=== PATIENT | male | born 1995 | race Caucasian/White ===

== ENCOUNTER 2016-11-13 17:26 | Emergency (ER) | payer OTHER ==
[~2016-11-13] VITALS: Ht 180.3 cm; Wt 65.9 kg
[~2016-11-13 17:26] MED LIST: CLON.5 PO; SERT100T12 PO; SULF1TAB42 PO
[2016-11-13 18:30] VITALS: BP 140/88
[2016-11-13] MEDS ORDERED: IBUPROFEN 800 MG TABLET PO ONE (18:30)
== END 2016-11-13 18:56 | disposition home or self-care (01) ==
LOC: EMS 17:27
DX: S61.401A Unspecified open wound of right hand, initial encounter (principal); S51.001A Unspecified open wound of right elbow, initial encounter; S60.221A Contusion of right hand, initial encounter; W01.0XXA Fall on same level from slipping, tripping and stumbling without subsequent striking against object, initial encounter; Y93.89 Activity, other specified; Y92.89 Other specified places as the place of occurrence of the external cause; Y99.8 Other external cause status
CPT/HCPCS: 99284

== ENCOUNTER 2017-07-02 11:13 | Emergency (ER) | payer OTHER ==
[~2017-07-02] VITALS: Ht 180.3 cm; Wt 59.1 kg
[2017-07-02 12:21] LABS: AMPHET/METH SCREEN,URINE NEGATIVE (NEGATIVE); BARBITURATE SCREEN, URINE NEGATIVE (NEGATIVE); BENZODIAZEPINES SCREEN,URINE NEGATIVE (NEGATIVE); CANNABINOID SCREEN,URINE POSITIVE (NEGATIVE); COCAINE SCREEN,URINE NEGATIVE (NEGATIVE); METHADONE SCREEN, URINE NEGATIVE (NEGATIVE); OPIATE SCREEN,URINE NEGATIVE (NEGATIVE)
[2017-07-02 12:22] LABS: PHENCYCLIDINE SCREEN,URINE NEGATIVE (NEGATIVE)
[2017-07-02 12:23] LABS: BASOPHILS % (AUTO) 0.8 % (0.0-2.0); HEMATOCRIT 44.9 % (41-53); HEMOGLOBIN 15.4 g/dL (13.5-17.5); LYMPHOCYTES # (AUTO) 1.2 K/uL (1.0-4.8); LYMPHOCYTES % (AUTO) 19.4 % (22.0-44.0); MEAN CORPUSCULAR HGB CONC 34.3 G/dL (31.0-37.0); MEAN CORPUSCULAR VOLUME 88 fL (80-100); MONOCYTES # (AUTO) 0.3 K/uL (0.1-1.0); NEUTROPHILS # (AUTO) 4.4 K/uL (1.8-7.7); NEUTROPHILS % (AUTO) 73.8 % (40.0-70.0); PLATELET COUNT (AUTO) 176 K/uL (150-450); RED BLOOD CELL COUNT(AUTO) 5.13 MIL/uL (4.50-5.90); RED CELL DISTRIBUTION WIDTH 14.8 % (11.5-14.5)
[2017-07-02 12:42] LABS: ANION GAP 7 mmol/L (8-16); CALCIUM, TOTAL 9.5 mg/dL (8.8-10.5); CARBON DIOXIDE 27 mmol/L (22-29); CHLORIDE 104 mmol/L (98-107); CREATININE 0.96 mg/dL (0.60-1.30); GLOMERULAR FILTR. RATE CALC > 60 mL/min (>60); GLUCOSE,RANDOM 123 mg/dL (70-110); POTASSIUM 4.4 mmol/L (3.5-5.1); SODIUM SERUM 138 mmol/L (136-145); UREA NITROGEN, BLOOD 12 mg/dL (7-18)
[2017-07-02 12:45] LABS: ALANINE AMINOTRANSFERASE 25 U/L (12-78); ALBUMIN 4.8 g/dL (3.4-5.0); ALKALINE PHOSPHATASE 78 U/L (46-116); ASPARTATE AMINOTRANSFERASE 18 U/L (15-37); BILIRUBIN,TOTAL 0.5 mg/dL (0.1-1.0); TOTAL PROTEIN, SERUM 8.7 g/dL (6.4-8.2)
[2017-07-02 12:58] LABS: APPEARANCE,URINE CLEAR (CLEAR); BILIRUBIN,URINE NEGATIVE (NEGATIVE); GLUCOSE, URINE (UA) NEGATIVE (NEGATIVE); KETONES,URINE NEGATIVE (NEGATIVE); LEUKOCYTE ESTERASE ,URINE NEGATIVE (NEGATIVE); NITRATE,URINE NEGATIVE (NEGATIVE); OCCULT BLOOD,URINE NEGATIVE (NEGATIVE); PH,URINE 6.5 (5.0-8.0); PROTEIN,URINE NEGATIVE (NEGATIVE); UROBILINOGEN,URINE 0.2 mg/dL (<=1.0)
[2017-07-02 15:57] VITALS: BP 151/75
== END 2017-07-02 16:16 | disposition home or self-care (01) ==
LOC: EMS 11:14
DX: F41.9 Anxiety disorder, unspecified (principal); R42 Dizziness and giddiness; R11.0 Nausea; F32.9 Major depressive disorder, single episode, unspecified; F12.90 Cannabis use, unspecified, uncomplicated
CPT/HCPCS: 93005; 99285

== ENCOUNTER 2018-11-18 06:58 | Emergency (ER) | payer SELFPAY ==
[~2018-11-18] VITALS: Ht 180.3 cm; Wt 68.2 kg
[2018-11-18] MEDS ORDERED: INDO-16 PO (07:34)
[2018-11-18] MEDS ORDERED: METH500T7 PO (07:34)
[2018-11-18] MEDS ORDERED: BETAMETHASONE PO (07:34)
[2018-11-18 13:04] VITALS: BP 106/62
== END 2018-11-18 13:27 | disposition home or self-care (01) ==
LOC: EMS 06:58
DX: S63.501A Unspecified sprain of right wrist, initial encounter (principal); F41.9 Anxiety disorder, unspecified; F32.9 Major depressive disorder, single episode, unspecified; X58.XXXA Exposure to other specified factors, initial encounter; Y93.H3 Activity, building and construction; Y92.89 Other specified places as the place of occurrence of the external cause; Y99.8 Other external cause status

== ENCOUNTER 2018-11-20 19:58 | Emergency (ER) | payer SELFPAY ==
[~2018-11-20] VITALS: Ht 180.3 cm; Wt 68.2 kg
[~2018-11-20 19:58] MED LIST changes: +BETAMETHASONE PO; -CLON.5 PO; +INDO-16 PO; +METH500T7 PO; -SERT100T12 PO; -SULF1TAB42 PO
[2018-11-20 20:38] VITALS: BP 124/74
== END 2018-11-20 21:00 | disposition home or self-care (01) ==
LOC: EMS 20:00
DX: L98.8 Other specified disorders of the skin and subcutaneous tissue (principal); F41.9 Anxiety disorder, unspecified; F32.9 Major depressive disorder, single episode, unspecified; F17.210 Nicotine dependence, cigarettes, uncomplicated
CPT/HCPCS: 99406

== ENCOUNTER 2021-04-13 15:21 | Emergency (ER) | payer SELFPAY ==
[~2021-04-13] VITALS: Ht 180.3 cm; Wt 75.0 kg
[2021-04-13] MEDS ORDERED: RISP0.5T39 PO (15:39)
[2021-04-13] MEDS ORDERED: BENZTROPINE MESYLATE 2 MG TABLET PO ONE (17:45)
[2021-04-13] MEDS ORDERED: DiphenhydrAMINE HCL 50 MG/ML VIAL IM ONE (17:45)
[2021-04-13] MEDS ORDERED: DIPH25CA85 PO (19:11)
[2021-04-13] MEDS ORDERED: BENZ2TAB10 PO (19:11)
[2021-04-13 19:26] VITALS: BP 110/75
== END 2021-04-13 19:38 | disposition home or self-care (01) ==
LOC: EMS 15:23
DX: R25.8 Other abnormal involuntary movements (principal); T43.595A Adverse effect of other antipsychotics and neuroleptics, initial encounter; F32.9 Major depressive disorder, single episode, unspecified; F41.9 Anxiety disorder, unspecified; Z79.899 Other long term (current) drug therapy; Y92.89 Other specified places as the place of occurrence of the external cause
CPT/HCPCS: 96372; 99285; J1200

== ENCOUNTER 2021-04-18 11:26 | Inpatient (IN) | payer MEDICAID ==
[~2021-04-18] VITALS: Ht 185.4 cm; Wt 70.8 kg
[~2021-04-18 11:26] MED LIST changes: +BENZ2TAB10 PO; -BETAMETHASONE PO; +DIPH25CA85 PO; -INDO-16 PO; -METH500T7 PO; +RISP0.5T39 PO
[2021-04-18 12:21] LABS: BASOPHILS % (AUTO) 0.7 % (0.0-2.0); EOSINOPHILS % (AUTO) 0.3 % (1.0-6.0); HEMATOCRIT 42.4 % (41-53); HEMOGLOBIN 14.4 g/dL (13.5-17.5); LYMPHOCYTES # (AUTO) 1.3 K/uL (1.0-4.8); MEAN CORPUSCULAR HEMOGLOBIN 28.7 pg (26.0-34.0); MEAN CORPUSCULAR HGB CONC 33.9 G/dL (31.0-37.0); MEAN CORPUSCULAR VOLUME 85 fL (80-100); MONOCYTES # (AUTO) 0.5 K/uL (0.1-1.0); MONOCYTES % (AUTO) 5.6 % (2.0-9.0); NEUTROPHILS # (AUTO) 7.5 K/uL (1.8-7.7); NEUTROPHILS % (AUTO) 79.4 % (40.0-70.0); PLATELET COUNT (AUTO) 198 K/uL (150-450); RED CELL DISTRIBUTION WIDTH 14.6 % (11.5-14.5)
[2021-04-18 12:40] LABS: COVID AG,FIA SOURCE NASOPHARYNGEAL
[2021-04-18 12:42] LABS: ANION GAP 12 mmol/L (8-16); CALCIUM, TOTAL 9.4 mg/dL (8.8-10.5); CARBON DIOXIDE 26 mmol/L (22-29); CHLORIDE 101 mmol/L (98-107); CREATININE 0.94 mg/dL (0.60-1.30); GLOMERULAR FILTR. RATE CALC > 60 mL/min (>60); GLUCOSE,RANDOM 109 mg/dL (70-110); POTASSIUM 4.1 mmol/L (3.5-5.1); SODIUM SERUM 139 mmol/L (136-145); UREA NITROGEN, BLOOD 11 mg/dL (7-18)
[2021-04-18 12:46] LABS: ALANINE AMINOTRANSFERASE 34 U/L (12-78); ALBUMIN 4.6 g/dL (3.4-5.0); ALKALINE PHOSPHATASE 85 U/L (46-116); ASPARTATE AMINOTRANSFERASE 19 U/L (15-37); BILIRUBIN,TOTAL 0.7 mg/dL (0.1-1.0); TOTAL PROTEIN, SERUM 8.4 g/dL (6.4-8.2)
[2021-04-18] MEDS ORDERED: SODIUM CHLORIDE 0.9% 250 ML IRRIG SOLUTION BOTTLE IRRIG ONE (14:00)
[2021-04-18] MEDS ORDERED: BACITRACIN 0.9 GM PACKET OINTMENT TP ONE (14:00)
[2021-04-18] MEDS ORDERED: PERTUSS(ACELL),DIPH,TET VAC/PF 0.5 ML SYRINGE IM. ONE (14:00)
[2021-04-18] MEDS ORDERED: DiphenhydrAMINE HCL 50 MG CAPSULE PO ONE (14:00)
[2021-04-18] MEDS ORDERED: HALOPERIDOL 5 MG TABLET PO ONE (14:00)
[2021-04-18] MEDS ORDERED: LORazepam 2 MG TABLET PO ONE (14:00)
[2021-04-18 15:46] LABS: AMPHET/METH SCREEN,URINE NEGATIVE (NEGATIVE); BARBITURATE SCREEN, URINE NEGATIVE (NEGATIVE); BENZODIAZEPINES SCREEN,URINE NEGATIVE (NEGATIVE); CANNABINOID SCREEN,URINE NEGATIVE (NEGATIVE); COCAINE SCREEN,URINE NEGATIVE (NEGATIVE); METHADONE SCREEN, URINE NEGATIVE (NEGATIVE); OPIATE SCREEN,URINE NEGATIVE (NEGATIVE)
[2021-04-18 15:53] LABS: PHENCYCLIDINE SCREEN,URINE NEGATIVE (NEGATIVE)
[2021-04-18] MEDS: LORazepam 2 MG TABLET PO PRN (18:25)
[2021-04-18 20:09] VITALS: BP 127/76
[2021-04-18 20:50] VITALS: BP 113/93
[2021-04-19] MEDS ORDERED: IOHEXOL 350 MG/ML 100 ML VIAL ONE (01:35)
[2021-04-19] MEDS ORDERED: SODIUM CHLORIDE 0.9% 100 ML ONE (01:35)
[2021-04-19] MEDS ORDERED: LORazepam 2 MG/ML VIAL ONE (08:04)
[2021-04-19] MEDS ORDERED: DiphenhydrAMINE HCL 50 MG/ML VIAL ONE (08:04)
[2021-04-19] MEDS ORDERED: HALOPERIDOL LACTATE 5 MG/ML VIAL ONE (08:04)
[2021-04-19] MEDS ORDERED: HALOPERIDOL LACTATE 5 MG/ML VIAL IM ONE (08:15)
[2021-04-19] MEDS ORDERED: LORazepam 2 MG/ML VIAL IM ONE (08:15)
[2021-04-19] MEDS ORDERED: DiphenhydrAMINE HCL 50 MG/ML VIAL IM ONE (08:15)
[2021-04-19] MEDS: BACITRACIN 28 GM OINTMENT TP SCH ×2 (09:07→16:52)
[2021-04-19] MEDS: NICOTINE 14 MG/24 HOUR PATCH TD SCH (09:08)
[2021-04-19 11:30] VITALS: BP 113/64
[2021-04-19] MEDS: HALOPERIDOL 5 MG TABLET PO PRN ×2 (11:38→16:52)
[2021-04-19] MEDS: LORazepam 2 MG TABLET PO PRN ×2 (11:38→16:52)
[2021-04-19] MEDS ORDERED: DOCUSATE SODIUM 100 MG CAPSULE PO PRN (13:45)
[2021-04-19] MEDS ORDERED: NICOTINE 14 MG/24 HOUR PATCH TD PRN (13:45)
[2021-04-19] MEDS ORDERED: MAGNESIUM HYDROXIDE SUSPENSION 30 ML UDCUP PO PRN (13:45)
[2021-04-19] MEDS ORDERED: MAG HYDROX/AL HYDROX/SIMETH ES 30 ML SUSPENSION UDCUP PO PRN (13:45)
[2021-04-19] MEDS ORDERED: GuaiFENesin/D-METHORPHAN [SUGAR-FREE] 200-20MG/10 ML SYRUP UDCUP PO PRN (13:45)
[2021-04-19] MEDS ORDERED: IBUPROFEN 400 MG TABLET PO PRN (13:45)
[2021-04-19] MEDS ORDERED: PETROLATUM,WHITE 28 GM JELLY TP PRN (13:45)
[2021-04-19] MEDS ORDERED: ALBUTEROL SULFATE HFA 90 MCG/PUFF 8 GM INHALER IH PRN (13:45)
[2021-04-19] MEDS ORDERED: CloNIDine HCL 0.1 MG TABLET PO PRN (13:45)
[2021-04-19] MEDS ORDERED: ONDANSETRON HCL 4 MG TABLET PO PRN (13:45)
[2021-04-19] MEDS: RisperiDONE 1 MG TABLET PO SCH (16:52)
[2021-04-19] MEDS: BENZTROPINE MESYLATE 2 MG TABLET PO SCH (16:52)
[2021-04-19 19:57] VITALS: BP 145/110
[2021-04-19] MEDS ORDERED: CloNIDine HCL 0.1 MG TABLET PO ONE (20:15)
[2021-04-20] MEDS: LORazepam 2 MG TABLET PO PRN (00:21)
[2021-04-20] MEDS: ZOLPIDEM TARTRATE 10 MG TABLET PO PRN (00:21)
[2021-04-20 00:22] VITALS: BP 135/76
[2021-04-20] MEDS ORDERED: DiphenhydrAMINE HCL 50 MG/ML VIAL ONE (01:19)
[2021-04-20] MEDS ORDERED: LORazepam 2 MG/ML VIAL ONE (01:19)
[2021-04-20] MEDS ORDERED: HALOPERIDOL LACTATE 5 MG/ML VIAL ONE (01:19)
[2021-04-20] MEDS ORDERED: DiphenhydrAMINE HCL 50 MG/ML VIAL IM ONE (01:30)
[2021-04-20] MEDS ORDERED: LORazepam 2 MG/ML VIAL IM ONE (01:30)
[2021-04-20] MEDS ORDERED: HALOPERIDOL LACTATE 5 MG/ML VIAL IM ONE (01:30)
[2021-04-20 07:08] LABS: CHOL/HDL RATIO 2.5 (4.2-7.3)
[2021-04-20] MEDS: RisperiDONE 1 MG TABLET PO SCH ×3 (09:55→17:00)
[2021-04-20] MEDS: BENZTROPINE MESYLATE 2 MG TABLET PO SCH ×2 (09:59→17:00)
[2021-04-20] MEDS: NICOTINE 14 MG/24 HOUR PATCH TD SCH (09:59)
[2021-04-20] MEDS: BACITRACIN 28 GM OINTMENT TP SCH ×2 (10:00→17:00)
[2021-04-21] MEDS: NICOTINE 14 MG/24 HOUR PATCH TD SCH (08:05)
[2021-04-21] MEDS: BACITRACIN 28 GM OINTMENT TP SCH ×2 (08:06→17:09)
[2021-04-21] MEDS: BENZTROPINE MESYLATE 2 MG TABLET PO SCH ×2 (08:06→17:09)
[2021-04-21] MEDS: RisperiDONE 1 MG TABLET PO SCH ×3 (08:06→17:09)
[2021-04-21 08:46] VITALS: BP 105/60
[2021-04-21] MEDS: HALOPERIDOL 5 MG TABLET PO PRN (12:24)
[2021-04-21] MEDS: LORazepam 2 MG TABLET PO PRN (12:24)
[2021-04-21 16:00] VITALS: BP 108/62
[2021-04-22 04:19] VITALS: BP 110/66
[2021-04-22 08:23] VITALS: BP 100/61
[2021-04-22] MEDS: BENZTROPINE MESYLATE 2 MG TABLET PO SCH ×2 (08:39→17:17)
[2021-04-22] MEDS: RisperiDONE 1 MG TABLET PO SCH ×3 (08:39→17:17)
[2021-04-22] MEDS: BACITRACIN 28 GM OINTMENT TP SCH ×2 (08:40→18:08)
[2021-04-22] MEDS: NICOTINE 14 MG/24 HOUR PATCH TD SCH (09:13)
[2021-04-22 12:01] VITALS: BP 110/68
[2021-04-22] MEDS: HALOPERIDOL 5 MG TABLET PO PRN ×2 (12:12→17:18)
[2021-04-22] MEDS: LORazepam 2 MG TABLET PO PRN ×2 (13:01→17:18)
[2021-04-22 16:01] VITALS: BP 107/64
[2021-04-23 00:16] VITALS: BP 113/64
[2021-04-23 08:16] VITALS: BP 120/68
[2021-04-23] MEDS: BENZTROPINE MESYLATE 2 MG TABLET PO SCH ×2 (08:45→16:59)
[2021-04-23] MEDS: NICOTINE 14 MG/24 HOUR PATCH TD SCH (08:45)
[2021-04-23] MEDS: RisperiDONE 1 MG TABLET PO SCH ×3 (08:45→16:55)
[2021-04-23] MEDS: BACITRACIN 28 GM OINTMENT TP SCH ×2 (08:45→16:55)
[2021-04-23 16:12] VITALS: BP 100/60
[2021-04-23] MEDS: LORazepam 2 MG TABLET PO PRN (16:55)
[2021-04-23 17:42] VITALS: BP 107/71
[2021-04-24 03:23] VITALS: BP 106/67
[2021-04-24] MEDS: HALOPERIDOL 5 MG TABLET PO PRN ×3 (04:12→22:34)
[2021-04-24] MEDS: LORazepam 2 MG TABLET PO PRN ×4 (04:12→22:34)
[2021-04-24 08:23] VITALS: BP 100/63
[2021-04-24] MEDS: RisperiDONE 1 MG TABLET PO SCH ×3 (08:34→17:02)
[2021-04-24] MEDS: BENZTROPINE MESYLATE 2 MG TABLET PO SCH ×2 (08:35→17:02)
[2021-04-24] MEDS: NICOTINE 14 MG/24 HOUR PATCH TD SCH (08:41)
[2021-04-24] MEDS: BACITRACIN 28 GM OINTMENT TP SCH ×2 (09:05→18:43)
[2021-04-24 16:01] VITALS: BP 128/72
[2021-04-25] MEDS: ZOLPIDEM TARTRATE 10 MG TABLET PO PRN (01:05)
[2021-04-25 04:20] VITALS: BP 107/71
[2021-04-25 08:00] VITALS: BP 110/72
[2021-04-25] MEDS: BACITRACIN 28 GM OINTMENT TP SCH ×2 (09:00→17:00)
[2021-04-25] MEDS: MULTIVITAMINS WITH MINERALS, THERAPEUTIC TABLET PO SCH (10:00)
[2021-04-25] MEDS: BENZTROPINE MESYLATE 2 MG TABLET PO SCH ×2 (10:00→17:00)
[2021-04-25] MEDS: NICOTINE 14 MG/24 HOUR PATCH TD SCH (10:43)
[2021-04-25] MEDS: RisperiDONE 2 MG TABLET PO SCH ×3 (13:00→17:00)
[2021-04-26 03:26] VITALS: BP 108/70
[2021-04-26 08:01] VITALS: BP 124/70
[2021-04-26] MEDS: RisperiDONE 2 MG TABLET PO SCH ×3 (08:25→16:28)
[2021-04-26] MEDS: BACITRACIN 28 GM OINTMENT TP SCH ×2 (08:25→16:28)
[2021-04-26] MEDS: BENZTROPINE MESYLATE 2 MG TABLET PO SCH ×2 (08:26→16:28)
[2021-04-26] MEDS: MULTIVITAMINS WITH MINERALS, THERAPEUTIC TABLET PO SCH (08:26)
[2021-04-26] MEDS: NICOTINE 14 MG/24 HOUR PATCH TD SCH (08:26)
[2021-04-26 16:01] VITALS: BP 127/72
[2021-04-27] MEDS: LORazepam 2 MG TABLET PO PRN (01:44)
[2021-04-27 06:31] VITALS: BP 122/70
[2021-04-27] MEDS: LOPERAMIDE HCL 2 MG CAPSULE PO PRN ×2 (08:05→16:22)
[2021-04-27] MEDS: BACITRACIN 28 GM OINTMENT TP SCH ×2 (08:05→16:43)
[2021-04-27] MEDS: RisperiDONE 2 MG TABLET PO SCH ×3 (08:06→16:22)
[2021-04-27] MEDS: NICOTINE 14 MG/24 HOUR PATCH TD SCH (08:06)
[2021-04-27] MEDS: MULTIVITAMINS WITH MINERALS, THERAPEUTIC TABLET PO SCH (08:06)
[2021-04-27] MEDS: BENZTROPINE MESYLATE 2 MG TABLET PO SCH ×2 (08:06→16:22)
[2021-04-27 08:14] VITALS: BP 105/63
[2021-04-27 16:05] VITALS: BP 131/65
[2021-04-27] MEDS: MetroNIDAZOLE 500 MG TABLET PO SCH (16:22)
[2021-04-28 06:08] VITALS: BP 102/84
[2021-04-28] MEDS: MetroNIDAZOLE 500 MG TABLET PO SCH ×3 (08:04→16:21)
[2021-04-28] MEDS: BENZTROPINE MESYLATE 2 MG TABLET PO SCH ×2 (08:04→16:21)
[2021-04-28] MEDS: BACITRACIN 28 GM OINTMENT TP SCH ×2 (08:04→16:21)
[2021-04-28] MEDS: MULTIVITAMINS WITH MINERALS, THERAPEUTIC TABLET PO SCH (08:04)
[2021-04-28] MEDS: NICOTINE 14 MG/24 HOUR PATCH TD SCH (08:04)
[2021-04-28] MEDS: RisperiDONE 2 MG TABLET PO SCH ×3 (08:04→16:21)
[2021-04-28 08:07] VITALS: BP 103/59
[2021-04-28 09:05] LABS: ANION GAP 3 mmol/L (8-16); CALCIUM, TOTAL 8.8 mg/dL (8.8-10.5); CARBON DIOXIDE 29 mmol/L (22-29); CHLORIDE 106 mmol/L (98-107); CREATININE 1.03 mg/dL (0.60-1.30); GLOMERULAR FILTR. RATE CALC > 60 mL/min (>60); GLUCOSE,RANDOM 108 mg/dL (70-110); POTASSIUM 4.4 mmol/L (3.5-5.1); SODIUM SERUM 138 mmol/L (136-145); UREA NITROGEN, BLOOD 18 mg/dL (7-18)
[2021-04-28 16:01] VITALS: BP 120/60
[2021-04-29 00:58] VITALS: BP 119/67
[2021-04-29 07:46] LABS: GLUCOMETER DEV NAME(LOC) POC.BV
[2021-04-29] MEDS: BACITRACIN 28 GM OINTMENT TP SCH ×2 (08:02→17:03)
[2021-04-29] MEDS: BENZTROPINE MESYLATE 2 MG TABLET PO SCH ×2 (08:02→17:02)
[2021-04-29] MEDS: MetroNIDAZOLE 500 MG TABLET PO SCH ×3 (08:02→17:02)
[2021-04-29] MEDS: RisperiDONE 2 MG TABLET PO SCH ×3 (08:02→17:02)
[2021-04-29] MEDS: MULTIVITAMINS WITH MINERALS, THERAPEUTIC TABLET PO SCH (08:02)
[2021-04-29] MEDS: NICOTINE 14 MG/24 HOUR PATCH TD SCH (08:03)
[2021-04-29 08:06] VITALS: BP 114/66
[2021-04-29] MEDS: ACETAMINOPHEN 325 MG TABLET PO PRN (11:05)
[2021-04-29 16:01] VITALS: BP 117/61
[2021-04-30 01:28] VITALS: BP 103/62
[2021-04-30 08:06] VITALS: BP 112/60
[2021-04-30] MEDS: MetroNIDAZOLE 500 MG TABLET PO SCH ×3 (08:59→16:34)
[2021-04-30] MEDS: BENZTROPINE MESYLATE 2 MG TABLET PO SCH ×2 (08:59→16:34)
[2021-04-30] MEDS: RisperiDONE 2 MG TABLET PO SCH ×3 (08:59→16:34)
[2021-04-30] MEDS: MULTIVITAMINS WITH MINERALS, THERAPEUTIC TABLET PO SCH (08:59)
[2021-04-30] MEDS: NICOTINE 14 MG/24 HOUR PATCH TD SCH (08:59)
[2021-04-30] MEDS: BACITRACIN 28 GM OINTMENT TP SCH ×2 (09:00→16:34)
[2021-04-30] MEDS: LORazepam 2 MG TABLET PO PRN (13:03)
[2021-04-30 16:08] VITALS: BP 128/78
[2021-05-01 00:14] VITALS: BP 132/70
[2021-05-01] MEDS: ACETAMINOPHEN 325 MG TABLET PO PRN (00:35)
[2021-05-01 08:00] VITALS: BP 104/60
[2021-05-01] MEDS: MetroNIDAZOLE 500 MG TABLET PO SCH ×3 (09:07→16:27)
[2021-05-01] MEDS: NICOTINE 14 MG/24 HOUR PATCH TD SCH (09:07)
[2021-05-01] MEDS: RisperiDONE 2 MG TABLET PO SCH ×3 (09:07→16:27)
[2021-05-01] MEDS: MULTIVITAMINS WITH MINERALS, THERAPEUTIC TABLET PO SCH (09:07)
[2021-05-01] MEDS: BENZTROPINE MESYLATE 2 MG TABLET PO SCH ×2 (09:07→16:27)
[2021-05-01] MEDS: BACITRACIN 28 GM OINTMENT TP SCH ×2 (09:08→16:27)
[2021-05-01 16:08] VITALS: BP 112/56
[2021-05-02 01:54] VITALS: BP 115/73
[2021-05-02 08:13] VITALS: BP 111/60
[2021-05-02] MEDS: RisperiDONE 2 MG TABLET PO SCH ×3 (09:20→17:36)
[2021-05-02] MEDS: MULTIVITAMINS WITH MINERALS, THERAPEUTIC TABLET PO SCH (09:20)
[2021-05-02] MEDS: NICOTINE 14 MG/24 HOUR PATCH TD SCH (09:20)
[2021-05-02] MEDS: BENZTROPINE MESYLATE 2 MG TABLET PO SCH ×2 (09:20→17:36)
[2021-05-02] MEDS: BACITRACIN 28 GM OINTMENT TP SCH ×2 (09:20→17:00)
[2021-05-02] MEDS: MetroNIDAZOLE 500 MG TABLET PO SCH ×3 (09:20→17:36)
[2021-05-02] MEDS: ACETAMINOPHEN 325 MG TABLET PO PRN (12:44)
[2021-05-02 16:20] VITALS: BP 108/63
[2021-05-03 01:23] VITALS: BP 107/61
[2021-05-03 08:03] VITALS: BP 115/72
[2021-05-03] MEDS: RisperiDONE 2 MG TABLET PO SCH ×3 (10:21→16:28)
[2021-05-03] MEDS: MetroNIDAZOLE 500 MG TABLET PO SCH ×3 (10:22→16:28)
[2021-05-03] MEDS: MULTIVITAMINS WITH MINERALS, THERAPEUTIC TABLET PO SCH (10:22)
[2021-05-03] MEDS: BENZTROPINE MESYLATE 2 MG TABLET PO SCH ×2 (10:22→16:28)
[2021-05-03] MEDS: NICOTINE 14 MG/24 HOUR PATCH TD SCH (10:23)
[2021-05-03] MEDS: BACITRACIN 28 GM OINTMENT TP SCH ×2 (10:23→16:29)
[2021-05-03] MEDS: LORazepam 2 MG TABLET PO PRN (13:20)
[2021-05-03 16:02] VITALS: BP 111/73
[2021-05-04 02:58] VITALS: BP 116/78
[2021-05-04 08:09] VITALS: BP 118/52
[2021-05-04] MEDS: NICOTINE 14 MG/24 HOUR PATCH TD SCH (08:21)
[2021-05-04] MEDS: MULTIVITAMINS WITH MINERALS, THERAPEUTIC TABLET PO SCH (08:21)
[2021-05-04] MEDS: BENZTROPINE MESYLATE 2 MG TABLET PO SCH ×2 (08:21→16:38)
[2021-05-04] MEDS: MetroNIDAZOLE 500 MG TABLET PO SCH ×2 (08:21→16:38)
[2021-05-04] MEDS: RisperiDONE 2 MG TABLET PO SCH ×3 (08:21→16:38)
[2021-05-04] MEDS: BACITRACIN 28 GM OINTMENT TP SCH ×2 (09:26→16:38)
[2021-05-04] MEDS ORDERED: RISP2TAB45 PO (10:14)
[2021-05-04] MEDS ORDERED: BENZ2TAB10 PO ×2 (10:15→10:44)
[2021-05-04] MEDS ORDERED: RISP2TAB86 PO (10:44)
[2021-05-04 16:05] VITALS: BP 101/63
== END 2021-05-04 17:00 | disposition home or self-care (01) | DRG 750 ==
LOC: EMS 11:29 → B2S 16:36 → B2X 04-19 11:10 → B3A 04-19 11:11 → B2S 04-28 17:55
PROVIDERS: ADMIT Psychiatry & Neurology Child & Adolescent Psychiatry; ATTEND Psychiatry & Neurology Child & Adolescent Psychiatry
DX: F25.0 Schizoaffective disorder, bipolar type (principal); Z59.00 Homelessness unspecified; F15.90 Other stimulant use, unspecified, uncomplicated; F41.9 Anxiety disorder, unspecified; F32.A Depression, unspecified; Z20.822 Contact with and (suspected) exposure to COVID-19; H53.8 Other visual disturbances; F19.10 Other psychoactive substance abuse, uncomplicated; F17.210 Nicotine dependence, cigarettes, uncomplicated; S61.411A Laceration without foreign body of right hand, initial encounter; W22.01XA Walked into wall, initial encounter; Y93.89 Activity, other specified; Y92.89 Other specified places as the place of occurrence of the external cause; Y99.8 Other external cause status
CPT/HCPCS: 80048; 80053; 80061; 83735; 85025; 90715; 99285; G0480; J1200; J1630; J2060; J7050; Q9967

== ENCOUNTER 2021-04-18 21:36 | Emergency (ER) | payer MEDICAID ==
[~2021-04-18] VITALS: Ht 177.8 cm; Wt 77.3 kg
[2021-04-18] MEDS ORDERED: DiphenhydrAMINE HCL 50 MG/ML VIAL IM ONE (23:30)
[2021-04-18] MEDS ORDERED: LORazepam 2 MG/ML VIAL IM ONE (23:30)
[2021-04-18 23:40] LABS: BASOPHILS % (AUTO) 0.7 % (0.0-2.0); EOSINOPHILS % (AUTO) 0.7 % (1.0-6.0); HEMATOCRIT 39.1 % (41-53); HEMOGLOBIN 13.3 g/dL (13.5-17.5); LYMPHOCYTES % (AUTO) 17.9 % (22.0-44.0); MEAN CORPUSCULAR HEMOGLOBIN 28.5 pg (26.0-34.0); MEAN CORPUSCULAR HGB CONC 34.1 G/dL (31.0-37.0); MEAN CORPUSCULAR VOLUME 84 fL (80-100); MONOCYTES # (AUTO) 0.9 K/uL (0.1-1.0); MONOCYTES % (AUTO) 7.7 % (2.0-9.0); PLATELET COUNT (AUTO) 197 K/uL (150-450); RED BLOOD CELL COUNT(AUTO) 4.68 MIL/uL (4.50-5.90); RED CELL DISTRIBUTION WIDTH 14.4 % (11.5-14.5)
[2021-04-18 23:49] LABS: ANION GAP 7 mmol/L (8-16); CALCIUM, TOTAL 9.2 mg/dL (8.8-10.5); CARBON DIOXIDE 28 mmol/L (22-29); CHLORIDE 103 mmol/L (98-107); CREATININE 1.05 mg/dL (0.60-1.30); GLOMERULAR FILTR. RATE CALC > 60 mL/min (>60); GLUCOSE,RANDOM 98 mg/dL (70-110); SODIUM SERUM 138 mmol/L (136-145); UREA NITROGEN, BLOOD 18 mg/dL (7-18)
[2021-04-19 00:05] LABS: B-TYPE NATRIURETIC PEPTIDE < 5 pg/mL (0-100)
[2021-04-19 00:19] LABS: ALANINE AMINOTRANSFERASE 32 U/L (12-78); ALBUMIN 4.1 g/dL (3.4-5.0); ALKALINE PHOSPHATASE 79 U/L (46-116); ASPARTATE AMINOTRANSFERASE 14 U/L (15-37); BILIRUBIN,TOTAL 0.4 mg/dL (0.1-1.0); CREATINE KINASE, TOTAL ONLY 196 U/L (39-308); TOTAL PROTEIN, SERUM 7.7 g/dL (6.4-8.2)
[2021-04-19] MEDS ORDERED: HALOPERIDOL LACTATE 5 MG/ML VIAL IM ONE (00:45)
[2021-04-19] MEDS ORDERED: KETAMINE HCL 50 MG/ML 10 ML VIAL IM ONE (02:00)
[2021-04-19] MEDS ORDERED: KETAMINE HCL 50 MG/ML 10 ML VIAL IVP ONE ×2 (02:15→02:45)
[2021-04-19] MEDS ORDERED: MIDAZOLAM HCL 5 MG/ML VIAL IM ONE ×2 (05:00)
[2021-04-19 05:56] VITALS: BP 126/62
== END 2021-04-19 06:13 | disposition home or self-care (01) ==
LOC: EMS 21:40
DX: F29 Unspecified psychosis not due to a substance or known physiological condition (principal); F41.9 Anxiety disorder, unspecified; R00.0 Tachycardia, unspecified; F32.9 Major depressive disorder, single episode, unspecified; F17.210 Nicotine dependence, cigarettes, uncomplicated; F19.90 Other psychoactive substance use, unspecified, uncomplicated
CPT/HCPCS: 36415; 71045; 71275; 80053; 82550; 83880; 84484; 85025; 85379; 93005; 96372; 99152; 99285; G0480; J1200; J1630; J2060; J2250; J3490

== ENCOUNTER 2021-05-04 12:10 | Emergency (ER) | payer MEDICAID ==
[~2021-05-04] VITALS: Ht 180.3 cm; Wt 75.0 kg
[~2021-05-04 12:10] MED LIST changes: +RISP2TAB45 PO; +RISP2TAB86 PO
[2021-05-04 13:58] VITALS: BP 131/82
== END 2021-05-04 14:16 | disposition home or self-care (01) ==
LOC: EMS 12:12
DX: H53.8 Other visual disturbances (principal); F41.9 Anxiety disorder, unspecified; F32.9 Major depressive disorder, single episode, unspecified; F15.90 Other stimulant use, unspecified, uncomplicated; F17.210 Nicotine dependence, cigarettes, uncomplicated; Z79.899 Other long term (current) drug therapy
CPT/HCPCS: 99283; Z7502

== ENCOUNTER 2022-12-25 17:28 | Inpatient (IN) | payer MEDICAID, OTHER ==
[~2022-12-25] VITALS: Ht 180.3 cm; Wt 101.2 kg
[~2022-12-25 17:28] MED LIST changes: -BENZ2TAB10 PO; +BENZ2TAB71 PO; -DIPH25CA85 PO; -RISP0.5T39 PO
[2022-12-25] MEDS ORDERED: GABA600T10 PO (17:34)
[2022-12-25 18:27] LABS: BASOPHILS % (AUTO) 0.6 % (0.0-2.0); EOSINOPHILS % (AUTO) 0.1 % (1.0-6.0); HEMATOCRIT 41.9 % (41-53); LYMPHOCYTES # (AUTO) 1.1 K/uL (1.0-4.8); LYMPHOCYTES % (AUTO) 11.5 % (22.0-44.0); MEAN CORPUSCULAR HEMOGLOBIN 28.6 pg (26.0-34.0); MEAN CORPUSCULAR HGB CONC 33.3 G/dL (31.0-37.0); MEAN CORPUSCULAR VOLUME 86 fL (80-100); MONOCYTES # (AUTO) 0.7 K/uL (0.1-1.0); MONOCYTES % (AUTO) 7.3 % (2.0-9.0); NEUTROPHILS # (AUTO) 7.6 K/uL (1.8-7.7); NEUTROPHILS % (AUTO) 80.5 % (40.0-70.0); PLATELET COUNT (AUTO) 222 K/uL (150-450); RED BLOOD CELL COUNT(AUTO) 4.88 MIL/uL (4.50-5.90); RED CELL DISTRIBUTION WIDTH 13.7 % (11.5-14.5); WHITE BLOOD COUNT (AUTO) 9.4 K/uL (4.5-11.0)
[2022-12-25 18:35] LABS: ANION GAP 10 mmol/L (8-16); CALCIUM, TOTAL 9.4 mg/dL (8.8-10.5); CARBON DIOXIDE 26 mmol/L (22-29); CHLORIDE 103 mmol/L (98-107); CREATININE 1.17 mg/dL (0.60-1.30); GLOMERULAR FILTR. RATE CALC > 60 mL/min (>60); GLUCOSE,RANDOM 122 mg/dL (70-110); POTASSIUM 3.9 mmol/L (3.5-5.1); SODIUM SERUM 139 mmol/L (136-145); UREA NITROGEN, BLOOD 6 mg/dL (7-18)
[2022-12-25 18:43] LABS: ALANINE AMINOTRANSFERASE 51 U/L (12-78); ALBUMIN 4.5 g/dL (3.4-5.0); ALKALINE PHOSPHATASE 91 U/L (46-116); ASPARTATE AMINOTRANSFERASE 29 U/L (15-37); BILIRUBIN,TOTAL 0.4 mg/dL (0.1-1.0); TOTAL PROTEIN, SERUM 8.5 g/dL (6.4-8.2)
[2022-12-25 18:53] LABS: ALCOHOL, BLOOD (SERUM) < 3 mg/dL (0-10)
[2022-12-25 19:08] LABS: COVID AG,FIA SOURCE NASAL SWAB
[2022-12-25 19:34] LABS: SARS-COV2 (COVID) ANTIGEN,FIA Negative (Negative)
[2022-12-25] MEDS ORDERED: LORazepam 2 MG/ML VIAL IM ONE (20:15)
[2022-12-25] MEDS ORDERED: ZOLPIDEM TARTRATE 10 MG TABLET PO PRN (20:15)
[2022-12-25] MEDS ORDERED: ZIPRASIDONE MESYLATE 20 MG/VIAL IM ONE (20:15)
[2022-12-25 20:45] LABS: APPEARANCE,URINE CLEAR (CLEAR); BILIRUBIN,URINE NEGATIVE (NEGATIVE); COLOR,URINE LIGHT YELLOW (YELLOW); GLUCOSE, URINE (UA) TRACE mg/dL (NEGATIVE); KETONES,URINE TRACE mg/dL (NEGATIVE); LEUKOCYTE ESTERASE ,URINE NEGATIVE (NEGATIVE); NITRATE,URINE NEGATIVE (NEGATIVE); OCCULT BLOOD,URINE NEGATIVE (NEGATIVE); PH,URINE 5.5 (5.0-8.0); PROTEIN,URINE NEGATIVE (NEGATIVE); SPECIFIC GRAVITIY, URINE 1.008 (1.003-1.030); UROBILINOGEN,URINE <=1.0 mg/dL (<=1.0)
[2022-12-25 20:46] LABS: PH,URINE DRUG SCREEN 5.5 (5.0-8.0)
[2022-12-25 20:50] LABS: ALCOHOL, URINE DRUG SCREEN NEGATIVE (NEGATIVE); AMPHET/METH SCREEN,URINE NEGATIVE (NEGATIVE); BARBITURATE SCREEN, URINE NEGATIVE (NEGATIVE); BENZODIAZEPINES SCREEN,URINE NEGATIVE (NEGATIVE); CANNABINOID SCREEN,URINE POSITIVE (NEGATIVE); COCAINE SCREEN,URINE NEGATIVE (NEGATIVE); METHADONE SCREEN, URINE NEGATIVE (NEGATIVE); OPIATE SCREEN,URINE NEGATIVE (NEGATIVE); PHENCYCLIDINE SCREEN,URINE NEGATIVE (NEGATIVE)
[2022-12-26] MEDS: LORazepam 2 MG TABLET PO PRN ×4 (04:17→21:02)
[2022-12-26] MEDS: HALOPERIDOL 5 MG TABLET PO PRN ×4 (04:17→21:58)
[2022-12-26 16:15] VITALS: BP 135/100; PULSE 108; RESP 19; TEMP 97.7; O2SAT 97
[2022-12-26 17:15] VITALS: BP 110/70; PULSE 89; RESP 18; TEMP 97; O2SAT 98
[2022-12-26 19:15] VITALS: BP 136/65; PULSE 105; RESP 18; TEMP 97.8; O2SAT 98
[2022-12-26 20:06] VITALS: BP 135/100; PULSE 108; RESP 18; TEMP 97.7; O2SAT 97
[2022-12-26 22:15] VITALS: BP 132/79; PULSE 135; RESP 18; TEMP 97.9; O2SAT 97
[2022-12-26] MEDS ORDERED: HALOPERIDOL LACTATE 5 MG/ML VIAL IM ONE (23:30)
[2022-12-26] MEDS ORDERED: LORazepam 2 MG/ML VIAL IM ONE (23:30)
[2022-12-26] MEDS ORDERED: DiphenhydrAMINE HCL 50 MG/ML VIAL IM ONE (23:30)
[2022-12-27 02:15] VITALS: RESP 18
[2022-12-27] MEDS: HALOPERIDOL 5 MG TABLET PO PRN (04:23)
[2022-12-27] MEDS: LORazepam 2 MG TABLET PO PRN (04:23)
[2022-12-27 06:36] VITALS: BP 136/87; PULSE 108; PULSE 93; RESP 18; TEMP 97.8
[2022-12-27 08:07] VITALS: BP 132/98; PULSE 100; RESP 18; TEMP 97.5; O2SAT 100
[2022-12-27] MEDS ORDERED: HALOPERIDOL LACTATE 5 MG/ML VIAL IM ONE (08:15)
[2022-12-27] MEDS ORDERED: DiphenhydrAMINE HCL 50 MG/ML VIAL IM ONE (08:15)
[2022-12-27] MEDS ORDERED: LORazepam 2 MG/ML VIAL IM ONE (08:15)
[2022-12-27] MEDS ORDERED: DULoxetine HCL 20 MG CAPSULE PO SCH (09:30)
[2022-12-27] MEDS: RisperiDONE 2 MG TABLET PO SCH ×2 (09:39→17:00)
[2022-12-27] MEDS: GABAPENTIN 300 MG CAPSULE PO SCH ×2 (09:39→17:00)
[2022-12-27 10:00] VITALS: BP 121/86; PULSE 134; RESP 18; TEMP 97.3; O2SAT 95
[2022-12-27 10:15] VITALS: BP 113/95; PULSE 133; RESP 22; TEMP 97.7; O2SAT 97
[2022-12-28] MEDS ORDERED: LORA-1000 PO (11:03)
[2022-12-28 11:07] LABS: HEPATITIS C AB (EIA) Non Reactive (Non Reactive)
== END 2022-12-27 18:35 | disposition short-term general hospital (02) | DRG 750 ==
LOC: EMS 17:28 → B3A 12-26 13:11
PROVIDERS: ADMIT Psychiatry & Neurology Child & Adolescent Psychiatry; ATTEND Psychiatry & Neurology Child & Adolescent Psychiatry
DX: F25.0 Schizoaffective disorder, bipolar type (principal); R45.851 Suicidal ideations; F17.210 Nicotine dependence, cigarettes, uncomplicated; F41.9 Anxiety disorder, unspecified; R73.9 Hyperglycemia, unspecified; F12.10 Cannabis abuse, uncomplicated; G47.00 Insomnia, unspecified; Z20.822 Contact with and (suspected) exposure to COVID-19
CPT/HCPCS: 80053; 80307; 81003; 85025; 86803; 87340; 99285; G0480; J1200; J1630; J2060; J3486

== ENCOUNTER 2022-12-27 11:24 | Inpatient (IN) | payer MEDICAID, OTHER ==
[~2022-12-27] VITALS: Ht 177.8 cm; Wt 113.6 kg
[~2022-12-27 11:24] MED LIST changes: -BENZ2TAB71 PO; +GABA600T10 PO; -RISP2TAB86 PO
[2022-12-27 12:33] LABS: BASOPHILS % (AUTO) 0.7 % (0.0-2.0); EOSINOPHILS % (AUTO) 0.3 % (1.0-6.0); HEMATOCRIT 40.1 % (41-53); HEMOGLOBIN 13.2 g/dL (13.5-17.5); LYMPHOCYTES # (AUTO) 1.5 K/uL (1.0-4.8); LYMPHOCYTES % (AUTO) 14.5 % (22.0-44.0); MEAN CORPUSCULAR HEMOGLOBIN 28.3 pg (26.0-34.0); MEAN CORPUSCULAR HGB CONC 32.8 G/dL (31.0-37.0); MEAN CORPUSCULAR VOLUME 86 fL (80-100); MONOCYTES # (AUTO) 0.8 K/uL (0.1-1.0); MONOCYTES % (AUTO) 7.9 % (2.0-9.0); NEUTROPHILS # (AUTO) 7.8 K/uL (1.8-7.7); NEUTROPHILS % (AUTO) 76.6 % (40.0-70.0); PLATELET COUNT (AUTO) 208 K/uL (150-450); RED BLOOD CELL COUNT(AUTO) 4.65 MIL/uL (4.50-5.90); RED CELL DISTRIBUTION WIDTH 13.6 % (11.5-14.5); WHITE BLOOD COUNT (AUTO) 10.1 K/uL (4.5-11.0)
[2022-12-27 12:40] LABS: ANION GAP 13 mmol/L (8-16); CALCIUM, TOTAL 9.3 mg/dL (8.8-10.5); CARBON DIOXIDE 24 mmol/L (22-29); CHLORIDE 100 mmol/L (98-107); CREATININE 1.12 mg/dL (0.60-1.30); GLOMERULAR FILTR. RATE CALC > 60 mL/min (>60); GLUCOSE,RANDOM 112 mg/dL (70-110); POTASSIUM 3.7 mmol/L (3.5-5.1); SODIUM SERUM 137 mmol/L (136-145); UREA NITROGEN, BLOOD 23 mg/dL (7-18)
[2022-12-27 13:02] LABS: ALCOHOL, BLOOD (SERUM) < 3 mg/dL (0-10)
[2022-12-27 13:05] LABS: ALANINE AMINOTRANSFERASE 55 U/L (12-78); ALBUMIN 4.2 g/dL (3.4-5.0); ALKALINE PHOSPHATASE 86 U/L (46-116); ASPARTATE AMINOTRANSFERASE 29 U/L (15-37); BILIRUBIN,TOTAL 0.5 mg/dL (0.1-1.0); CREATINE KINASE, TOTAL ONLY 283 U/L (39-308); TOTAL PROTEIN, SERUM 7.4 g/dL (6.4-8.2)
[2022-12-27] MEDS ORDERED: SODIUM CHLORIDE 0.9% 1,000 ML IV ONE (16:15)
[2022-12-27] MEDS ORDERED: LORazepam 2 MG/ML VIAL IVP ONE (16:45)
[2022-12-27] MEDS ORDERED: ONDANSETRON HCL 4 MG/2 ML VIAL IVP PRN (19:15)
[2022-12-27] MEDS ORDERED: ACETAMINOPHEN 325 MG TABLET PO PRN (19:15)
[2022-12-27] MEDS ORDERED: ChlordiazePOXIDE HCL 25 MG CAPSULE PO ONE (20:30)
[2022-12-27 20:34] LABS: APPEARANCE,URINE CLEAR (CLEAR); BILIRUBIN,URINE NEGATIVE (NEGATIVE); COLOR,URINE YELLOW (YELLOW); GLUCOSE, URINE (UA) NEGATIVE (NEGATIVE); KETONES,URINE 40-60 mg/dL (NEGATIVE); LEUKOCYTE ESTERASE ,URINE NEGATIVE (NEGATIVE); NITRATE,URINE NEGATIVE (NEGATIVE); OCCULT BLOOD,URINE NEGATIVE (NEGATIVE); PROTEIN,URINE 30-70 mg/dL (NEGATIVE); SPECIFIC GRAVITIY, URINE 1.037 (1.003-1.030); UROBILINOGEN,URINE <=1.0 mg/dL (<=1.0)
[2022-12-27 20:40] LABS: ALCOHOL, URINE DRUG SCREEN NEGATIVE (NEGATIVE); AMPHET/METH SCREEN,URINE NEGATIVE (NEGATIVE); BARBITURATE SCREEN, URINE NEGATIVE (NEGATIVE); BENZODIAZEPINES SCREEN,URINE NEGATIVE (NEGATIVE); CANNABINOID SCREEN,URINE POSITIVE (NEGATIVE); COCAINE SCREEN,URINE NEGATIVE (NEGATIVE); METHADONE SCREEN, URINE NEGATIVE (NEGATIVE); OPIATE SCREEN,URINE NEGATIVE (NEGATIVE); PHENCYCLIDINE SCREEN,URINE NEGATIVE (NEGATIVE)
[2022-12-27 21:20] VITALS: BP 122/83; PULSE 109; RESP 20; TEMP 98.1
[2022-12-27] MEDS: LORazepam 2 MG TABLET PO PRN (21:48)
[2022-12-27] MEDS: DOCUSATE SODIUM 100 MG CAPSULE PO SCH (21:48)
[2022-12-27] MEDS: 1: MAGNESIUM SULFATE 2 GM, MVI, ADULT NO.1 WITH VIT K 10 ML, THIAMINE 100 MG, FOLIC ACID IV SCH ×5 (21:48)
[2022-12-27 22:28] LABS: COVID AG,FIA SOURCE NASAL SWAB
[2022-12-27 22:46] LABS: SARS-COV2 (COVID) ANTIGEN,FIA Negative (Negative)
[2022-12-27] MEDS: HEPARIN SODIUM,PORCINE 5,000 UNITS/ML VIAL SQ SCH (23:34)
[2022-12-28] MEDS: LORazepam 2 MG TABLET PO PRN (00:14)
[2022-12-28 01:30] VITALS: BP 123/72; PULSE 101; RESP 20; TEMP 97.6
[2022-12-28 05:10] VITALS: BP 133/74; PULSE 96; RESP 20; TEMP 98.3
[2022-12-28] MEDS ORDERED: SODIUM CHLORIDE 0.9% 1,000 ML ONE (06:48)
[2022-12-28] MEDS: 1: MAGNESIUM SULFATE 2 GM, MVI, ADULT NO.1 WITH VIT K 10 ML, THIAMINE 100 MG, FOLIC ACID IV SCH ×5 (06:53)
[2022-12-28 06:56] LABS: BASOPHILS % (AUTO) 0.7 % (0.0-2.0); EOSINOPHILS % (AUTO) 1.5 % (1.0-6.0); HEMATOCRIT 38.7 % (41-53); HEMOGLOBIN 12.9 g/dL (13.5-17.5); LYMPHOCYTES # (AUTO) 1.2 K/uL (1.0-4.8); LYMPHOCYTES % (AUTO) 16.6 % (22.0-44.0); MEAN CORPUSCULAR HEMOGLOBIN 29.3 pg (26.0-34.0); MEAN CORPUSCULAR HGB CONC 33.5 G/dL (31.0-37.0); MEAN CORPUSCULAR VOLUME 88 fL (80-100); MONOCYTES # (AUTO) 0.5 K/uL (0.1-1.0); MONOCYTES % (AUTO) 6.5 % (2.0-9.0); NEUTROPHILS # (AUTO) 5.6 K/uL (1.8-7.7); NEUTROPHILS % (AUTO) 74.7 % (40.0-70.0); PLATELET COUNT (AUTO) 177 K/uL (150-450); RED BLOOD CELL COUNT(AUTO) 4.42 MIL/uL (4.50-5.90); RED CELL DISTRIBUTION WIDTH 13.4 % (11.5-14.5); WHITE BLOOD COUNT (AUTO) 7.4 K/uL (4.5-11.0)
[2022-12-28] MEDS ORDERED: LORazepam 2 MG TABLET PO PRN (07:00)
[2022-12-28 07:02] LABS: ANION GAP 11 mmol/L (8-16); CALCIUM, TOTAL 8.6 mg/dL (8.8-10.5); CARBON DIOXIDE 24 mmol/L (22-29); CHLORIDE 102 mmol/L (98-107); CREATININE 0.97 mg/dL (0.60-1.30); GLOMERULAR FILTR. RATE CALC > 60 mL/min (>60); GLUCOSE,RANDOM 88 mg/dL (70-110); SODIUM SERUM 137 mmol/L (136-145); UREA NITROGEN, BLOOD 14 mg/dL (7-18)
[2022-12-28 07:23] VITALS: BP 130/76; PULSE 94; RESP 20; TEMP 98.5
[2022-12-28] MEDS: LORazepam 2 MG TABLET PO SCH ×4 (08:04→20:37)
[2022-12-28] MEDS: DOCUSATE SODIUM 100 MG CAPSULE PO SCH ×2 (08:04→20:37)
[2022-12-28] MEDS: HEPARIN SODIUM,PORCINE 5,000 UNITS/ML VIAL SQ SCH ×2 (08:04→18:30)
[2022-12-28] MEDS ORDERED: LORA-1000 PO (11:03)
[2022-12-28 15:28] VITALS: BP 128/78; PULSE 92; RESP 18; TEMP 98.2
[2022-12-28 20:01] VITALS: BP 116/63; PULSE 84; RESP 18; TEMP 97.7
[2022-12-29] MEDS: HEPARIN SODIUM,PORCINE 5,000 UNITS/ML VIAL SQ SCH ×4 (01:06→23:59)
[2022-12-29 05:23] VITALS: BP 121/69; PULSE 89; RESP 18; TEMP 98
[2022-12-29 07:56] VITALS: BP 128/68; PULSE 70; RESP 18; TEMP 98.4
[2022-12-29] MEDS: LORazepam 2 MG TABLET PO SCH ×4 (08:12→20:37)
[2022-12-29] MEDS: DOCUSATE SODIUM 100 MG CAPSULE PO SCH ×2 (08:12→20:34)
[2022-12-29 14:44] VITALS: BP 119/72; PULSE 80; RESP 18; TEMP 98.5
[2022-12-29 20:21] VITALS: BP 128/79; PULSE 74; RESP 20; TEMP 98.3
[2022-12-29] MEDS: RisperiDONE 2 MG TABLET PO SCH (20:33)
[2022-12-30 04:57] VITALS: BP 112/60; PULSE 89; RESP 20; TEMP 97.6
[2022-12-30] MEDS ORDERED: LORazepam 1 MG TABLET PO PRN (07:00)
[2022-12-30 07:23] VITALS: BP 122/64; PULSE 85; RESP 20; TEMP 97.8
[2022-12-30] MEDS: HEPARIN SODIUM,PORCINE 5,000 UNITS/ML VIAL SQ SCH ×3 (08:00→22:24)
[2022-12-30] MEDS: LORazepam 1 MG TABLET PO SCH ×4 (08:29→22:24)
[2022-12-30] MEDS: DOCUSATE SODIUM 100 MG CAPSULE PO SCH ×2 (08:29→22:24)
[2022-12-30] MEDS: DULoxetine HCL 20 MG CAPSULE PO SCH (08:29)
[2022-12-30] MEDS: RisperiDONE 2 MG TABLET PO SCH ×2 (08:31→22:24)
[2022-12-30 15:04] VITALS: BP 128/76; PULSE 74; RESP 20; TEMP 98.3
[2022-12-30 19:17] VITALS: BP 128/67; PULSE 81; RESP 20; TEMP 98.7
[2022-12-31 03:57] VITALS: BP 98/61; PULSE 73; RESP 20; TEMP 98.3
[2022-12-31] MEDS ORDERED: LORazepam 1 MG TABLET PO PRN (07:00)
[2022-12-31] MEDS: HEPARIN SODIUM,PORCINE 5,000 UNITS/ML VIAL SQ SCH ×2 (08:00→16:00)
[2022-12-31 08:20] VITALS: BP 127/88; PULSE 98; RESP 18; TEMP 97.9
[2022-12-31] MEDS: RisperiDONE 2 MG TABLET PO SCH (09:04)
[2022-12-31] MEDS: DULoxetine HCL 20 MG CAPSULE PO SCH (09:05)
[2022-12-31] MEDS: DOCUSATE SODIUM 100 MG CAPSULE PO SCH (09:05)
[2022-12-31 15:14] VITALS: BP 116/60; PULSE 78; RESP 18; TEMP 98.3
== END 2022-12-31 17:48 | disposition home or self-care (01) | DRG 52 ==
LOC: EMS 11:33 → 5S 18:31 → 6N 20:44
PROVIDERS: ADMIT Internal Medicine; ATTEND Internal Medicine
DX: G92.8 Other toxic encephalopathy (principal); R45.851 Suicidal ideations; F25.1 Schizoaffective disorder, depressive type; D64.9 Anemia, unspecified; E66.9 Obesity, unspecified; F10.239 Alcohol dependence with withdrawal, unspecified; Z20.822 Contact with and (suspected) exposure to COVID-19; R09.02 Hypoxemia; F19.10 Other psychoactive substance abuse, uncomplicated; F31.9 Bipolar disorder, unspecified; T50.905A Adverse effect of unspecified drugs, medicaments and biological substances, initial encounter; F41.9 Anxiety disorder, unspecified; Z79.899 Other long term (current) drug therapy; Y92.89 Other specified places as the place of occurrence of the external cause; Z87.891 Personal history of nicotine dependence; Z68.35 Body mass index [BMI] 35.0-35.9, adult
CPT/HCPCS: 70450; 71045; 80048; 80053; 80307; 81003; 82140; 82550; 83735; 85025; 85379; 93005; 99285; G0480; J1644; J2060; J3411; J3475; J3490; J7030; 36415-L1; 36415-TC